=== PATIENT | female | born 1955 | race African-American/Black ===

== ENCOUNTER 2016-10-27 11:58 | Emergency (ER) | payer OTHER, MEDICAID ==
[~2016-10-27] VITALS: Ht 162.6 cm; Wt 71.2 kg
[~2016-10-27 11:58] MED LIST: ANTIVERT25 MG ORAL; IBUPROFEN600 MG ORAL
--- NOTE | 2016-10-27 12:44 | Emergency Room Report ---
History of Present Illness General Chief Complaint: General Complaint Source: Patient Present Illness HPI 61 YO Female presents to the ED c/o swelling and intermittent pain in the left knee x over 1 month. pt. states several years ago she was dx with arthritis, but states she did not have imaging performed. denies trauma or fall. denies erythema or increased temperature. describes aching dull pain that upon walking will exacerbate to sharp 7/10 in severity anterior and posterior left knee pain. Pt. also c/o nasal congestion, rhinorrhea, and intermittent cough x 1 week with no relief from Benadryl and Zyrtec at home. denies N/V/F/C. Denies recent travel or ill contacts. lastly, pt. reports intermittent spots in vision one week ago which resolved, denied head trauma, denied previous eye problems, pt. has never had eyes evaluated by furniture packer, denies pain, erythema, or flashing lights. pt. states spots lasted several seconds. Denies numbness tingling or loss of sensation or gross motor movements of the extremities, incontinence of bowel or bladder. Denies CP, Palpitations, LOC, AMS, dizziness, Changes in Vision, Sensation, paresthesias, or a sudden severe headache. Allergies: Coded Allergies: No Known Allergies (Unverified , 09/10/14) Patient History Past Medical History: see triage record Past Surgical History: none Pertinent Family History: none Last Menstrual Period: na Now: No Immunizations: UTD Reviewed Nursing Documentation: PMH: Agreed, PSxH: Agreed Nursing Documentation-PMH Past Medical History: No Stated History Review of Systems All Other Systems: negative except mentioned in HPI Physical Exam Vital Signs Date Time Temp Pulse Resp B/P Pulse Ox O2 Delivery O2 Flow Rate FiO2 10/27/16 12:00 97.3 75 18 134/93 98 Room Air Sp02 EP Interpretation: reviewed, normal General Appearance: no apparent distress, alert, GCS 15, non-toxic Head: normocephalic, atraumatic Eyes: bilateral eye EOMI, bilateral eye PERRL, bilateral eye normal inspection ENT: hearing grossly normal, normal pharynx, no angioedema, normal voice, TMs + canals normal, uvula midline, moist mucus membranes, nasal congestion Neck: full range of motion, no meningismus, no bony tend, supple/symm/no masses Respiratory: chest non-tender, lungs clear, normal breath sounds, speaking full sentences Cardiovascular #1: regular rate, rhythm, no edema Genitourinary: normal inspection Musculoskeletal: back normal, gait/station normal, normal range of motion, tender - anterior ttp, no posterior ttp, no pulsatile mass, no obvious increase in ligamental laxity, no appreciable swelling, no erythema, no obvious deformity or increased temperature to palpation. Neurologic: alert, oriented x3, responsive, motor strength/tone normal, sensory intact, speech normal Psychiatric: judgement/insight normal, memory normal, mood/affect normal Skin: normal color, no rash, warm/dry, well hydrated Lymphatic: no adenopathy Medical Decision Making PA Attestation Dr. Marcus is my supervising Physician whom patient management has been discussed with. Diagnostic Impression: Primary Impression: Knee pain, left Qualified Codes: M25.562 - Pain in left knee; G89.29 - Other chronic pain Additional Impressions: Arthritis of left knee Post-nasal drainage ER Course 61 YO Female presents to the ED c/o swelling and intermittent pain in the left knee x over 1 month. pt. states several years ago she was dx with arthritis, but states she did not have imaging performed. denies trauma or fall. denies erythema or increased temperature. describes aching dull pain that upon walking will exacerbate to sharp 7/10 in severity anterior and posterior left knee pain. Pt. also c/o nasal congestion, rhinorrhea, and intermittent cough x 1 week with no relief from Benadryl and Zyrtec at home. denies N/V/F/C. Denies recent travel or ill contacts. lastly, pt. reports intermittent spots in vision one week ago which resolved, denied head trauma, denied previous eye problems, pt. has never had eyes evaluated by furniture packer, denies pain, erythema, or flashing lights. pt. states spots lasted several seconds. Ddx considered but are not limited to Fracture, dislocation, contusion, Sprain/ Strain/Spasm, knee effusion, arthritis. Vital signs: are WNL, pt. is afebrile H&PE are most consistent with acute on chronic knee pain secondary to arthritis , post nasal drainage- no evidence of bacterial infection- suspicious for allergies vs. viral. ORDERS: - X-ray Left Knee 3 views - negative for fx, Dislocation, or significant soft tissue injury, per preliminary read in ED by Dr. Marcus ED INTERVENTIONS: -Albaro wrap applied to the left knee by air conditioning service technician. Pt. remains neurovascularly intact. -Pt is given a copy of her x-rays to take with her to follow up with pcp/ orthopedics. -d/w pt. to return to ED with worsening or new symptoms. DISCHARGE: At this time pt. is stable for d/c to home. Will provide printed patient care instructions, and any necessary prescriptions. Care plan and follow up instructions have been discussed with the patient prior to discharge. Last Vital Signs Date Time Temp Pulse Resp B/P Pulse Ox O2 Delivery O2 Flow Rate FiO2 10/27/16 12:00 97.3 75 18 134/93 98 Room Air Disposition: HOME, SELF-CARE Condition: Stable Scripts Guaifenesin (Guaifenesin) 1,200 Mg Tab.er.12h 1200 MG PO BID for 10 Days, #20 TAB Prov: Chrissy Ricardo 10/27/16 Loratadine/Pseudoephedrine (CLARITIN-D 24 HOUR TABLET) 1 Each Tab.er.24h 1 TAB PO DAILY for 10 Days, #20 TAB Prov: Chrissy Ricardo 10/27/16 Ibuprofen* (MOTRIN*) 600 Mg Tablet 600 MG ORAL THREE TIMES A DAY, #20 TAB 0 Refills Prov: Chrissy Ricardo 10/27/16 Referrals: NON PHYSICIAN (PCP) Patient Instructions: Arthritis, [id number] Additional Instructions: Take medications as directed. Follow up with PCP in 3-5 days Return sooner to ED if new symptoms occur, or current symptoms become worse. - Please note that this Emergency Department Report was dictated using [employer] safety engineer technology software, occasionally this can lead to erroneous entry secondary to interpretation by the dictation equipment. Chrissy Ricardo October 27, 2016 12:44
[2016-10-27] MEDS ORDERED: CLARITIN-D 241 EACH PO (12:52)
[2016-10-27] MEDS ORDERED: IBUPROFEN600 MG ORAL (12:52)
[2016-10-27] MEDS ORDERED: GUAIFENESIN1200 MG PO (12:52)
[2016-10-27 13:02] VITALS: BP_SYST 134; BP_SYST 137; BP_DIAS 89; BP_DIAS 93
--- NOTE | 2016-10-29 09:19 | Diagnostic Imaging Report ---
Indication: Pain 3 views of the left knee were obtained. Findings: Degenerative changes of the lateral compartment of the knee demonstrated with osteophyte formation. There is no fracture or malalignment. Impression: Osteoarthritis
== END 2016-10-27 13:02 | disposition home or self-care (01) ==
LOC: EMR 12:32
DX: M25.562 Pain in left knee (principal); G89.29 Other chronic pain; M17.12 Unilateral primary osteoarthritis, left knee; R09.82 Postnasal drip; R05 Cough
CPT/HCPCS: 29530; 99284

== ENCOUNTER 2016-12-16 12:13 | Emergency (ER) | payer OTHER, MEDICAID ==
[~2016-12-16] VITALS: Ht 162.6 cm; Wt 66.7 kg
[~2016-12-16 12:13] MED LIST changes: +CLARITIN-D 241 EACH PO; +GUAIFENESIN1200 MG PO
[2016-12-16] MEDS ORDERED: Metoclopramide 10mg/2ml Inj IVP ONE (12:45)
[2016-12-16 12:48] VITALS: BP 133/72
--- NOTE | 2016-12-16 12:53 | Emergency Room Report ---
History of Present Illness General Chief Complaint: Dizziness Source: Patient Present Illness HPI The patient is a 61-year-old female who denies any medical history presenting for feeling of weakness and dizziness with headache. Symptoms began 3 days prior. She denies any known provoking factors but thinks this may be due to to increased stress. She is to have a knee surgery soon. Pain is described as a 5 /10 dull ache to the top of the head and does not radiate. Known provoking or relieving factors. She states that she has had a decreased appetite as well. She denies any other symptoms including vomiting, chest pain, shortness of breath, neck pain or stiffness, rash, blurred vision, numbness or tingling, abdominal pain Allergies: Coded Allergies: No Known Allergies (Unverified , 09/10/14) Patient History Past Medical History: see triage record Pertinent Family History: none Last Menstrual Period: na Reviewed Nursing Documentation: PMH: Agreed, PSxH: Agreed Nursing Documentation-PMH Past Medical History: No Stated History Review of Systems All Other Systems: negative except mentioned in HPI Physical Exam Vital Signs Date Time Temp Pulse Resp B/P Pulse Ox O2 Delivery O2 Flow Rate FiO2 12/16/16 12:32 98.1 54 18 128/76 98 Room Air Sp02 EP Interpretation: reviewed, normal General Appearance: no apparent distress, alert, GCS 15, non-toxic Head: normocephalic, atraumatic Eyes: bilateral eye PERRL, bilateral eye normal inspection ENT: hearing grossly normal, normal pharynx, no angioedema, normal voice Neck: full range of motion, supple/symm/no masses Respiratory: chest non-tender, lungs clear, normal breath sounds, no wheezing, speaking full sentences Cardiovascular #1: no gallop, no JVD, no murmur, bradycardia Gastrointestinal: normal bowel sounds, non tender, soft, non-distended, no guarding, no rebound Musculoskeletal: back normal, gait/station normal, normal range of motion, non- tender Neurologic: alert, oriented x3, responsive, motor strength/tone normal, sensory intact, speech normal Psychiatric: judgement/insight normal, memory normal, mood/affect normal, no suicidal/homicidal ideation Skin: normal color, no rash, warm/dry, well hydrated Medical Decision Making PA Attestation Dr. Uribe is my supervising physician. Patient management was discussed with my supervising physician Diagnostic Impression: Primary Impression: Sinus bradycardia Additional Impression: Dizziness ER Course The patient is a 61-year-old female presenting for dizziness Differential diagnoses considered but not limited to: Benign positional vertigo , positional hypotension, labyrinthitis, Mnire's disease, dehydration, ACS PE: No apparent distress. A&Ox4 PERRL. EOMI. Normal mentation. Bradycardia. No MRG Lungs CTA bilat Abdomen: Normal appearance. Non distended. No ecchymosis. Normal BS. Non TTP. No McBurney point tenderness. No guarding. Skin is warm and dry, no Rashes. EKG shows sinus bradycardia and normal sinus rhythm. Otherwise unremarkable CBC is unremarkable. No anemia. No leukocytosis CMP unremarkable. no Electrolyte abnormality Cardiac markers are essentially negative Urine drug screen positive for marijuana and benzos The patient discharged home with a prescription for meclizine. She is to followup with primary doctor. She was informed of her slow heartbeat. Laboratory Tests Test 12/16/16 13:16 White Blood Count 4.4 K/UL (4.8-10.8) L Red Blood Count 4.68 M/UL (4.20-5.40) Hemoglobin 14.5 G/DL (12.0-16.0) Hematocrit 44.9 % (37.0-47.0) Mean Corpuscular Volume 96 FL (80-99) Mean Corpuscular Hemoglobin 31.0 PG (27.0-31.0) Mean Corpuscular Hemoglobin Concent 32.3 G/DL (32.0-36.0) Red Cell Distribution Width 12.0 % (11.6-14.8) Platelet Count 239 K/UL (150-450) Mean Platelet Volume 7.4 FL (6.5-10.1) Neutrophils (%) (Auto) 56.2 % (45.0-75.0) Lymphocytes (%) (Auto) 36.8 % (20.0-45.0) Monocytes (%) (Auto) 2.7 % (1.0-10.0) Eosinophils (%) (Auto) 3.6 % (0.0-3.0) H Basophils (%) (Auto) 0.7 % (0.0-2.0) Urine Color Pale yellow Urine Appearance Clear Urine pH 5 (4.5-8.0) Urine Specific [place] 1.020 (1.005-1.035) Urine Protein Negative (NEGATIVE) Urine Glucose (UA) Negative (NEGATIVE) Urine Ketones Negative (NEGATIVE) Urine Occult Blood Negative (NEGATIVE) Urine Nitrite Negative (NEGATIVE) Urine Bilirubin Negative (NEGATIVE) Urine Urobilinogen Normal MG/DL (0.0-1.0) Urine Leukocyte Esterase 1+ (NEGATIVE) H Urine RBC 0-2 /HPF (0 - 2) Urine WBC 0-2 /HPF (0 - 2) Urine Squamous Epithelial Cells Few /LPF (NONE/OCC) Urine Bacteria Few /HPF (NONE) Sodium Level 140 mEQ/L (135-145) Potassium Level 4.3 mEQ/L (3.4-4.9) Chloride Level 100 mEQ/L (98-107) Carbon Dioxide Level 29 mEQ/L (20-30) Anion Gap 11 (5-15) Blood Urea Nitrogen 12 mg/dL (7-23) Creatinine 0.9 mg/dL (0.5-0.9) Estimate Glomerular Filtration Rate > 60 mL/min (>60) Glucose Level 96 mg/dL (74-106) Calcium Level 9.4 mg/dL (8.6-10.2) Total Bilirubin 0.4 mg/dL (0.0-1.2) Aspartate Amino Transferase (AST) 26 U/L (5-40) Alanine Aminotransferase (ALT) 20 U/L (3-33) Alkaline Phosphatase 95 U/L (35-104) Total Creatine Kinase 166 U/L (26-140) H Creatine Kinase MB 2.8 ng/mL (< 3.8) Creatine Kinase MB Relative Index 1.6 Troponin I < 0.30 ng/mL (<=0.30) Total Protein 7.3 g/dL (6.6-8.7) Albumin 4.1 g/dL (3.5-5.2) Globulin 3.2 g/dL Albumin/Globulin Ratio 1.2 (1.0-2.7) Urine Opiates Screen Negative (NEGATIVE) Urine Barbiturates Screen Negative (NEGATIVE) Phencyclidine (PCP) Screen Negative (NEGATIVE) Urine Amphetamines Screen Negative (NEGATIVE) Urine Benzodiazepines Screen Positive (NEGATIVE) H Urine Cocaine Screen Negative (NEGATIVE) Urine Marijuana (THC) Screen Positive (NEGATIVE) H Lab Results Impression CBC is unremarkable. No anemia. No leukocytosis CMP unremarkable. no Electrolyte abnormality Cardiac markers are essentially negative Urine drug screen positive for marijuana and benzos EKG Diagnostic Results EP Interpretation: Sinus Bradycardia Rate: bradycardiac - 49 Rhythm: NSR ST Segments: no acute changes ASA given to the pt in ED: No PA Scribe Text EKG shows sinus bradycardia and normal sinus rhythm. Otherwise unremarkable Last Vital Signs Date Time Temp Pulse Resp B/P Pulse Ox O2 Delivery O2 Flow Rate FiO2 12/16/16 12:48 98.2 59 17 133/72 98 Room Air Status: improved Disposition: HOME, SELF-CARE Condition: Improved Scripts Meclizine Hcl* (MECLIZINE*) 25 Mg Tablet 25 MG ORAL THREE TIMES A DAY, #15 TAB Prov: DENNIS NOBLES 12/16/16 DENNIS NOBLES Dec 16, 2016 12:53
[2016-12-16 13:27] LABS: BASOPHILS % (AUTO) 0.7 % (0.0-2.0); EOSINOPHILS % (AUTO) 3.6 % (0.0-3.0); LYMPHOCYTES % (AUTO) 36.8 % (20.0-45.0); MEAN CORPUSCULAR HGB CONC 32.3 G/DL (32.0-36.0); MEAN CORPUSCULAR VOLUME 96 FL (80-99); MEAN PLATELET VOLUME 7.4 FL (6.5-10.1); MONOCYTES % (AUTO) 2.7 % (1.0-10.0); NEUTROPHILS % (AUTO) 56.2 % (45.0-75.0); PLATELET COUNT 239 K/UL (150-450); RED BLOOD COUNT 4.68 M/UL (4.20-5.40); WHITE BLOOD COUNT 4.4 K/UL (4.8-10.8)
[2016-12-16 13:28] LABS: APPEARANCE,URINE CLEAR; KETONES,URINE NEGATIVE (NEGATIVE); LEUKOCYTE ESTERASE ,URINE 1+ (NEGATIVE); NITRITE,URINE NEGATIVE (NEGATIVE); PH,URINE 5 (4.5-8.0); PROTEIN,URINE NEGATIVE (NEGATIVE); UROBILINOGEN,URINE NORMAL MG/DL (0.0-1.0)
[2016-12-16 13:39] LABS: BACTERIA,URINE FEW /HPF; RBC,URINE 0-2 /HPF (0 - 2); SQUAMOUS EPITHELIAL CELL,UR FEW /LPF (NONE/OCC); WBC,URINE 0-2 /HPF (0 - 2)
[2016-12-16 13:41] LABS: ALANINE AMINOTRANSFERASE 20 U/L (3-33); ALBUMIN/GLOBULIN RATIO 1.2 (1.0-2.7); ANION GAP 11 (5-15); ASPARTATE AMINO TRANSFERASE 26 U/L (5-40); CALCIUM 9.4 mg/dL (8.6-10.2); CARBON DIOXIDE 29 mEQ/L (20-30); CHLORIDE 100 mEQ/L (98-107); CREATININE 0.9 mg/dL (0.5-0.9); GLOMERULAR FILTRATION RATE > 60 mL/min (>60); HEMOLYSIS 12; POTASSIUM 4.3 mEQ/L (3.4-4.9); SODIUM 140 mEQ/L (135-145); TOTAL PROTEIN 7.3 g/dL (6.6-8.7); TROPONIN I < 0.30 ng/mL (<=0.30)
[2016-12-16 13:51] LABS: CKMB 2.8 ng/mL (< 3.8)
[2016-12-16] MEDS ORDERED: MECLIZINE HCL25 MG ORAL (14:09)
[2016-12-16] MEDS ORDERED: Metoclopramide 10mg/10ml Liq ORAL ONE (14:30)
[2016-12-16 14:35] VITALS: BP 137/74
[2016-12-16 14:36] VITALS: BP 133/72
== END 2016-12-16 14:36 | disposition home or self-care (01) ==
LOC: EMR 14:07
DX: R42 Dizziness and giddiness (principal); R00.1 Bradycardia, unspecified; F13.10 Sedative, hypnotic or anxiolytic abuse, uncomplicated
CPT/HCPCS: 36415; 80053; 80300; 81003; 82550; 82553; 84484; 85025; 93005; 96374; 99284; J2765